=== PATIENT | male | born 1995 | race Caucasian/White ===

== ENCOUNTER 2016-12-17 21:56 | Emergency (ER) | payer SELFPAY ==
--- NOTE | 2016-12-17 22:57 | ED ORDER SUMMARY ---
..... Patient: LORI HOWARD I OrderSheet [facility] VisitID: [id number] [place] [address] 21y, M Registration Date/Time: 12/17/2016 ORDER SHEET Weight: 99.7 kg Allergies: No Known Drug Allergy GENERAL ORDERS: MEDICATION ORDERS: Motrin PO 800 mg (NOW) (22:50 12/17/2016 EKoroleva P.A.-C) (Ack 22:55 Mumtaz R.N.) (23:02 CHernandez R.N.) Tylenol PO 650 mg (NOW) (22:50 12/17/2016 EKoroleva P.A.-C) (Ack 22:55 Mirinandez R.N.) (23:03 Mirinandez R.N.) Benadryl PO 50 mg (NOW) (22:50 12/17/2016 EKoroleva P.A.-C) (Ack 22:55 Mumtaz R.N.) (23:03 CHernandez R.N.) Amoxicillin / Clavulanate PO 875 mg (NOW) (22:50 12/17/2016 EKoroleva P.A.-C) (Ack 22:55 Mumtaz R.N.) (23:03 Mirinandez R.N.) IV FLUIDS: ORDER SHEET NOTES: [Electronically signed by Delvis Rodriguez R.N. (23:12/17/2016)] [Electronically signed by Sophie StephensALeslie-C (23:13 12/17/2016)] [Electronically locked/signed by Delvis Rodriguez R.N. (23:12/17/2016)]
--- NOTE | 2016-12-17 22:57 | ED NURSING NOTES ---
Clinical Report - Nurses [facility] [address] [place] [address] 12/17/2016 21:58 Patient: LORI HOWARD I TRIAGE Triage time 22:27. Acuity: LEVEL 5. Chief Complaint: COUGH, SORE THROAT and BODY ACHES. --22:34 Delvis Rodriguez R.N. 22:27 12/17/16. BP: 141/73. HR: 81. RR: 16. O2 saturation: 100%. Temp: 98.6 F. Pain level now: uncertain. --22:34 Delvis Rodriguez R.N. Weight: 99.7 kg. Height/Length: 72 inches. BMI: 29.8. --22:32 Delvis Rodriguez R.N. Medications None. --22:31 Delvis Rodriguez R.N. Allergies No Known Drug Allergy. --22:31 Delvis Rodriguez R.N. History Arrived by private vehicle. Historian: patient. Accompanied by mother. ( Flu like symptoms with headache, sore throat, runny nose, body aches ongoing for over 2 weeks.). Onset. (2 weeks ago). He has had mild chest congestion, sinus pain, mild abdominal pain and vomiting and loose stools. He has had a mild frontal headache. 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 PAST MEDICAL HX: Immunizations: up-to-date. SURGERY HX: No history of previous surgery. SOCIAL HX: Light tobacco smoker (cigarette)- less than 1/2 a pack per day. No infectious disease exposure. --22:34 Delvis Rodriguez R.N. Interventions ID band on patient. To room. --22:34 Delvis Rodriguez R.N. PHYSICAL ASSESSMENT Ambulatory to room. GENERAL / NEURO / PSYCH: Alert. Oriented X 4. Appears in no acute distress. HEENT: Pupils equal, round and reactive to light. Mucous membranes are pink. RESPIRATORY: Respirations not labored. Cough productive of thin, yellow sputum. Chest nontender. Breath sounds within normal limits. CVS: Capillary refill less than 2 seconds. GI / : The patient has had nausea. Abdomen soft and nontender and normal bowel sounds. SKIN: Skin intact. Skin is warm. Normal skin turgor. --22:35 Delvis Rodriguez R.N. NURSING PROGRESS NOTES Head of bed elevated. Patient identifiers checked. Call light placed in reach. Side rails up x 1. Bed placed in lowest position. Brakes of bed on. Patient ready for evaluation- ED physician and TECHNICAL TRAINER notified. --22:36 Delvis Rodriguez R.N. 23:02 12/17/2016 Motrin PO Tablets 800 mg given. Allergies verified and confirmed 5 rights. --23:02 Delvis Rodriguez R.N. 23:03 12/17/2016 Tylenol (Acetaminophen) PO Tablets 650 mg given. Allergies verified and confirmed 5 rights. --23:03 Delvis Rodriguez R.N. 23:03 12/17/2016 Benadryl (DiphenhydrAMINE HCl) PO Capsules 50 mg given. Allergies verified, confirmed 5 rights and sedative warning given to the patient and patient's family. --23:03 Delvis Rodriguez R.N. 23:03 12/17/2016 AMOXICILLIN / CLAVULANATE PO Tablets 875 mg given. Allergies verified and confirmed 5 rights. --23:03 Delvis Rodriguez R.N. DISPOSITION / DISCHARGE Condition at departure: stable. No learning barriers present. Discharge instructions provided and reviewed with the patient and parent. Reviewed medication(s) side effects, precautions, dosing and course information. Prescription(s) given to the patient. Reviewed referral to a primary care physician. Patient and parent verbalized understanding. Written instructions provided in Yoruba. The patient was discharged home and accompanied by parent. He left the Emergency Department ambulatory and via private vehicle. Parent driving. --23:07 Delvis Rodriguez R.N. 23:04 12/17/16. BP: 121/78. HR: 87. RR: 18. O2 saturation: 100%. Temp: 98 F. --23:07 Delvis Rodriguez R.N. Departure time: 23:08. --23:08 Delvis Rodriguez R.N. Locked/Released at 12/17/2016 23:09 by Delvis Rodriguez R.N.
--- NOTE | 2016-12-17 22:57 | ED CLINICAL REPORT ---
Clinical Report - Physicians/Mid Levels [facility] [address] [place] [address] 12/17/2016 21:58 Patient: LORI HOWARD I Time Seen: 2244Dec 17 2016. Arrived- By private vehicle. HISTORY OF PRESENT ILLNESS Chief Complaint: SORE THROAT and SINUS PAIN. 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 The illness is described as mild. No chills. He has had a sore throat and nasal congestion. (Patient reports cough and rhinorrhea congestion facial pain over the last 2 weeks. Reports no apparent abdominal pain, however has had abdominal cramping off and on. Reports diarrhea previously, none over the last 3 days. Denies any sick arrival. Patient works at a restaurant.). Additional history - No known contact with a sick individual. REVIEW OF SYSTEMS No headache, diarrhea, abdominal pain or pedal edema. All systems otherwise negative, except as recorded above. PAST HISTORY Problems: Sprain. Immunizations. Additional Surgeries: no known surgeries. Medications: None. Allergies: No Known Drug Allergy. SOCIAL HISTORY Current every day light tobacco smoker. No drug use. ADDITIONAL NOTES The nursing notes have been reviewed. PHYSICAL EXAM Vital Signs: 12/17/2016 22:27 BP: 141/73. HR: 81. RR: 16. O2 saturation: 100%. Temp: 98.6 F. Appearance: Alert. Eyes: Pupils equal, round and reactive to light. Eyes normal inspection. ENT: Uvula midline. No tonsillar exudate or peritonsillar mass. (b/l maxillary sinus tendernss.). Neck: Normal inspection. No lymphadenopathy. CVS: Normal heart rate and rhythm. Heart sounds normal. Respiratory: No respiratory distress. Breath sounds normal. No splinting. Abdomen: Soft. No organomegaly. Skin: Skin warm. Normal skin color. Neuro: Oriented X 3. PROGRESS AND PROCEDURES Course of Care: He in the ER patient with a loading negative exam beyond sinus tenderness. Uvula midline. Patient in no distress. Patient with no facial swelling. Patient with soft abdomen, non-septic appearing. Discussed option as this may be viral nature. 12/17/2016 23:04 BP: 121/78. HR: 87. RR: 18. O2 saturation: 100%. Temp: 98 F. Patient is stable. Physical exam findings are improved. Symptoms better. Patient/family counseled. Disposition: Discharged. CLINICAL IMPRESSION Acute sinusitis INSTRUCTIONS (Address: [place] [address] ). Prescription Medications: Augmentin 875 mg: take 1 tablet orally every 12 hours for 7 days. Dispense fourteen (14). No refills. Substitution is permissible. Ibuprofen 800 mg tablets: take 1 tablet orally every 8 hours for 5 days, as needed for pain. Dispense twenty (20). No refill. OTC Medications: Tylenol ER 650 mg (available over the counter): take 1 orally every 8 hours for 5 days, as needed for fever. Dispense twenty (20). No refill. Substitution is permissible. Sudafed 60 mg tabs (available over the counter): take 1 tablet orally every 8 hours for 3 days, as needed for congestion. Dispense twenty (20). No refill. Substitution is permissible. (Electronically signed by Sophie Stephens P.A.-C 12/17/2016 23:13)
--- NOTE | 2016-12-17 22:57 | ED CLINICAL REPORT ---
Clinical Report - Physicians/Mid Levels [facility] [address] [place] [address] 12/17/2016 21:58 Patient: LORI HOWARD I Time Seen: 2244Dec 17 2016. Arrived- By private vehicle. HISTORY OF PRESENT ILLNESS Chief Complaint: SORE THROAT and SINUS PAIN. 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 The illness is described as mild. No chills. He has had a sore throat and nasal congestion. (Patient reports cough and rhinorrhea congestion facial pain over the last 2 weeks. Reports no apparent abdominal pain, however has had abdominal cramping off and on. Reports diarrhea previously, none over the last 3 days. Denies any sick arrival. Patient works at a restaurant.). Additional history - No known contact with a sick individual. REVIEW OF SYSTEMS No headache, diarrhea, abdominal pain or pedal edema. All systems otherwise negative, except as recorded above. PAST HISTORY Problems: Sprain. Immunizations. Additional Surgeries: no known surgeries. Medications: None. Allergies: No Known Drug Allergy. SOCIAL HISTORY Current every day light tobacco smoker. No drug use. ADDITIONAL NOTES The nursing notes have been reviewed. PHYSICAL EXAM Vital Signs: 12/17/2016 22:27 BP: 141/73. HR: 81. RR: 16. O2 saturation: 100%. Temp: 98.6 F. Appearance: Alert. Eyes: Pupils equal, round and reactive to light. Eyes normal inspection. ENT: Uvula midline. No tonsillar exudate or peritonsillar mass. (b/l maxillary sinus tendernss.). Neck: Normal inspection. No lymphadenopathy. CVS: Normal heart rate and rhythm. Heart sounds normal. Respiratory: No respiratory distress. Breath sounds normal. No splinting. Abdomen: Soft. No organomegaly. Skin: Skin warm. Normal skin color. Neuro: Oriented X 3. PROGRESS AND PROCEDURES Course of Care: He in the ER patient with a loading negative exam beyond sinus tenderness. Uvula midline. Patient in no distress. Patient with no facial swelling. Patient with soft abdomen, non-septic appearing. Discussed option as this may be viral nature. 12/17/2016 23:04 BP: 121/78. HR: 87. RR: 18. O2 saturation: 100%. Temp: 98 F. Patient is stable. Physical exam findings are improved. Symptoms better. Patient/family counseled. Disposition: Discharged. CLINICAL IMPRESSION Acute sinusitis INSTRUCTIONS (Address: [place] [address] ). Prescription Medications: Augmentin 875 mg: take 1 tablet orally every 12 hours for 7 days. Dispense fourteen (14). No refills. Substitution is permissible. Ibuprofen 800 mg tablets: take 1 tablet orally every 8 hours for 5 days, as needed for pain. Dispense twenty (20). No refill. OTC Medications: Tylenol ER 650 mg (available over the counter): take 1 orally every 8 hours for 5 days, as needed for fever. Dispense twenty (20). No refill. Substitution is permissible. Sudafed 60 mg tabs (available over the counter): take 1 tablet orally every 8 hours for 3 days, as needed for congestion. Dispense twenty (20). No refill. Substitution is permissible. (Electronically signed by Sophie Stephens P.A.-C 12/17/2016 23:13)
--- NOTE | 2016-12-17 22:57 | ED NURSING NOTES ---
Clinical Report - Nurses [facility] [address] [place] [address] 12/17/2016 21:58 Patient: LORI HOWARD I TRIAGE Triage time 22:27. Acuity: LEVEL 5. Chief Complaint: COUGH, SORE THROAT and BODY ACHES. --22:34 Delvis Rodriguez R.N. 22:27 12/17/16. BP: 141/73. HR: 81. RR: 16. O2 saturation: 100%. Temp: 98.6 F. Pain level now: uncertain. --22:34 Delvis Rodriguez R.N. Weight: 99.7 kg. Height/Length: 72 inches. BMI: 29.8. --22:32 Delvis Rodriguez R.N. Medications None. --22:31 Delvis Rodriguez R.N. Allergies No Known Drug Allergy. --22:31 Delvis Rodriguez R.N. History Arrived by private vehicle. Historian: patient. Accompanied by mother. ( Flu like symptoms with headache, sore throat, runny nose, body aches ongoing for over 2 weeks.). Onset. (2 weeks ago). He has had mild chest congestion, sinus pain, mild abdominal pain and vomiting and loose stools. He has had a mild frontal headache. 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 PAST MEDICAL HX: Immunizations: up-to-date. SURGERY HX: No history of previous surgery. SOCIAL HX: Light tobacco smoker (cigarette)- less than 1/2 a pack per day. No infectious disease exposure. --22:34 Delvis Rodriguez R.N. Interventions ID band on patient. To room. --22:34 Delvis Rodriguez R.N. PHYSICAL ASSESSMENT Ambulatory to room. GENERAL / NEURO / PSYCH: Alert. Oriented X 4. Appears in no acute distress. HEENT: Pupils equal, round and reactive to light. Mucous membranes are pink. RESPIRATORY: Respirations not labored. Cough productive of thin, yellow sputum. Chest nontender. Breath sounds within normal limits. CVS: Capillary refill less than 2 seconds. GI / : The patient has had nausea. Abdomen soft and nontender and normal bowel sounds. SKIN: Skin intact. Skin is warm. Normal skin turgor. --22:35 Delvis Rodriguez R.N. NURSING PROGRESS NOTES Head of bed elevated. Patient identifiers checked. Call light placed in reach. Side rails up x 1. Bed placed in lowest position. Brakes of bed on. Patient ready for evaluation- ED physician and SWAT TEAM MEMBER notified. --22:36 Delvis Rodriguez R.N. 23:02 12/17/2016 Motrin PO Tablets 800 mg given. Allergies verified and confirmed 5 rights. --23:02 Delvis Rodriguez R.N. 23:03 12/17/2016 Tylenol (Acetaminophen) PO Tablets 650 mg given. Allergies verified and confirmed 5 rights. --23:03 Delvis Rodriguez R.N. 23:03 12/17/2016 Benadryl (DiphenhydrAMINE HCl) PO Capsules 50 mg given. Allergies verified, confirmed 5 rights and sedative warning given to the patient and patient's family. --23:03 Delvis Rodriguez R.N. 23:03 12/17/2016 AMOXICILLIN / CLAVULANATE PO Tablets 875 mg given. Allergies verified and confirmed 5 rights. --23:03 Delvis Rodriguez R.N. DISPOSITION / DISCHARGE Condition at departure: stable. No learning barriers present. Discharge instructions provided and reviewed with the patient and parent. Reviewed medication(s) side effects, precautions, dosing and course information. Prescription(s) given to the patient. Reviewed referral to a primary care physician. Patient and parent verbalized understanding. Written instructions provided in Turkish. The patient was discharged home and accompanied by parent. He left the Emergency Department ambulatory and via private vehicle. Parent driving. --23:07 Delvis Rodriguez R.N. 23:04 12/17/16. BP: 121/78. HR: 87. RR: 18. O2 saturation: 100%. Temp: 98 F. --23:07 Delvis Rodriguez R.N. Departure time: 23:08. --23:08 Delvis Rodriguez R.N. Locked/Released at 12/17/2016 23:09 by Delvis Rodriguez R.N.
--- NOTE | 2016-12-17 22:57 | ED ORDER SUMMARY ---
..... Patient: LORI HOWARD I OrderSheet [facility] VisitID: [id number] [place] [address] 21y, M Registration Date/Time: 12/17/2016 ORDER SHEET Weight: 99.7 kg Allergies: No Known Drug Allergy GENERAL ORDERS: MEDICATION ORDERS: Motrin PO 800 mg (NOW) (22:50 12/17/2016 EKoroleva P.A.-C) (Ack 22:55 Mumtaz R.N.) (23:02 CHernandez R.N.) Tylenol PO 650 mg (NOW) (22:50 12/17/2016 EKoroleva P.A.-C) (Ack 22:55 Mirinandez R.N.) (23:03 Mirinandez R.N.) Benadryl PO 50 mg (NOW) (22:50 12/17/2016 EKoroleva P.A.-C) (Ack 22:55 Mumtaz R.N.) (23:03 CHernandez R.N.) Amoxicillin / Clavulanate PO 875 mg (NOW) (22:50 12/17/2016 EKoroleva P.A.-C) (Ack 22:55 Mumtaz R.N.) (23:03 Mirinandez R.N.) IV FLUIDS: ORDER SHEET NOTES: [Electronically signed by Delvis Rodriguez R.N. (23:12/17/2016)] [Electronically signed by Sophie StephensALeslie-C (23:13 12/17/2016)] [Electronically locked/signed by Delvis Rodriguez R.N. (23:12/17/2016)]
--- NOTE | 2016-12-17 23:13 | ED DISCHARGE INSTRUCTIONS ---
Patient: LORI HOWARD I General Instructions [facility] VisitID: [id number] [place] [address] 21y, M Registration Date/Time: 12/17/2016 Acute sinusitis INSTRUCTIONS (Address: [place] [address] ). Prescription Medications: Augmentin 875 mg: take 1 tablet orally every 12 hours for 7 days. Dispense fourteen (14). No refills. Substitution is permissible. Ibuprofen 800 mg tablets: take 1 tablet orally every 8 hours for 5 days, as needed for pain. Dispense twenty (20). No refill. OTC Medications: Tylenol ER 650 mg (available over the counter): take 1 orally every 8 hours for 5 days, as needed for fever. Dispense twenty (20). No refill. Substitution is permissible. Sudafed 60 mg tabs (available over the counter): take 1 tablet orally every 8 hours for 3 days, as needed for congestion. Dispense twenty (20). No refill. Substitution is permissible. ADDITIONAL INFORMATION Sinusitis [Abx Tx] The sinuses are air-filled spaces within the bones of the face. They connect to the inside of the nose. Sinusitis is an inflammation of the tissue lining the sinus cavity. Sinus inflammation can occur during a cold or hay-fever (allergies to pollens and other particles in the air) and cause symptoms of sinus congestion and fullness. A sinus infection causes fever, headache and facial pain. There is usually green or yellow drainage from the nose or into the back of the throat (post-nasal drip). Antibiotics are prescribed to treat this condition. Home Care: Drink plenty of water, hot tea, and other liquids to stay well hydrated. This thins the mucus and promotes sinus drainage. Apply heat to the painful areas of the face. Use a towel soaked in hot water. Or, standard machine stitcher the shower and direct the hot spray onto your face. This is a good way to inhale warm water vapor and get heat on your face at the same time. (Cover your mouth and nose with your hands so you can still breathe as you do this.) Use a vaporizer with products such as Vicks VapoRub (contains menthol) at night. Suck on peppermint, menthol or eucalyptus hard candies during the day. An expectorant containing guaifenesin (such as Robitussin), helps to thin the mucus and promote drainage from the sinuses. Pysb-uhd-dkkreat decongestants may be used unless a similar medicine was prescribed. Nasal sprays work the fastest. Use one that contains phenylephrine (Louie-synephrine, Sinex and others) or oxymetazoline (Afrin). First blow the nose gently to remove mucus, then apply the drops. Do not use these medicines more often than directed on the label or for more than three days or symptoms may worsen. You may also use tablets containing pseudoephedrine (Sudafed). Many sinus remedies combine ingredients, which may increase side effects. Read the labels or ask the pharmacist for help. NOTE: Persons with high blood pressure should not use decongestants. They can raise blood pressure. Antihistamines are useful if allergies are a cause of your sinusitis. The mildest one is chlorpheniramine (available without a prescription). The dose for adults is 8-12mg three times a day. [NOTE: Do not use chlorpheniramine if you have glaucoma or if you are a man with trouble urinating due to an enlarged prostate.] Claritin (loratidine) is an antihistamine that causes less drowsiness and is a good alternative for daytime use. Do not use nasal rinses or irrigation during an acute sinus infection, unless advised by your doctor. Rinsing may spread the infection to other sinuses. You may use acetaminophen (Tylenol) or ibuprofen (Motrin, Advil) to control pain, unless another pain medicine was prescribed. [ NOTE: If you have chronic liver or kidney disease or ever had a stomach ulcer, talk with your doctor before using these medicines.] (Aspirin should never be used in anyone under 18 years of age who is ill with a fever. It may cause severe liver damage.) Finish the full course, even if you are feeling better after a few days. Follow Up with your doctor or this facility in one week or as instructed by our staff if not improving. Get Prompt Medical Attention if any of the following occur: Facial pain or headache becomes more severe Stiff neck Unusual drowsiness or confusion, or not acting like your normal self Swelling of the forehead or eyelids Vision problems including blurred or double vision Fever of 100.4F (38C) or higher, or as directed by your healthcare provider Seizure Pseudoephedrine Hydrochloride Oral tablet [Abuse Deterrent] What is this medicine? PSEUDOEPHEDRINE (myla gilmore e FED rin) is a decongestant. It is used to treat congestion of the nose or sinuses. How should I use this medicine? Take this medicine by mouth with a glass of water. Follow the directions on the package or prescription label. Take your medicine at regular intervals. Do not take your medicine more often than directed. Talk to your community recreation programmer regarding the use of this medicine in children. While this drug may be prescribed for children as young as 6 years of age for selected conditions, precautions do apply. Patients over 65 years old may have a stronger reaction and need a smaller dose. What side effects may I notice from receiving this medicine? Side effects that you should report to your doctor or health direct care worker as soon as possible: allergic reactions like skin rash, itching or hives, swelling of the face, lips, or tongue bloody diarrhea with stomach pain breathing problems chest pain confused, agitated, nervous fast, irregular heartbeat feeling faint or lightheaded, falls hallucinations high blood pressure pain, tingling, numbness in the hands or feet trouble passing urine or change in the amount of urine trouble sleeping Side effects that usually do not require medical attention (report to your doctor or health direct care worker if they continue or are bothersome): headache loss of appetite nausea, stomach upset What may interact with this medicine? Do not take this medicine with any of the following medications: bromocriptine ergot alkaloids like dihydroergotamine, ergonovine, ergotamine, methylergonovine MAOIs like Carbex, Eldepryl, Marplan, Nardil, and Parnate stimulant medicines for attention disorders, weight loss, or to stay awake This medicine may also interact with the following medications: alcohol atropine bretylium caffeine digoxin linezolid mecamylamine medicines for blood pressure medicines for depression, anxiety, or psychotic disturbances like fluoxetine, sertraline medicines for enlarged prostate medicines for sleep other medicines for cold, cough, or allergy procarbazine reserpine some heart medicines like metoprolol Roby's Wort What if I miss a dose? If you miss a dose, take it as soon as you can. If it is almost time for your next dose, take only that dose. Do not take double or extra doses. Where should I keep my medicine? Keep out of the reach of children. Store at room temperature between 15 and 25 degrees C (59 and 77 degrees F). Protect from heat and moisture. Throw away any unused medicine after the expiration date. What should I tell my health care provider before I take this medicine? They need to know if you have any of the following conditions: diabetes glaucoma heart disease high blood pressure kidney disease prostate trouble taken an MAOI like Carbex, Eldepryl, Marplan, Nardil, or Parnate in last 14 days thyroid disease trouble passing urine an unusual or allergic reaction to pseudoephedrine, other medicines, foods, dyes, or preservatives or trying to get breast-feeding What should I watch for while using this medicine? Tell your doctor or healthcare professional if your symptoms do not start to get better or if they get worse. See your doctor if you are not better in 7 days or if you have a fever. You have been given the following additional information: Sinusitis, Abx Tx Pseudoephedrine Hydrochloride Oral tablet [Abuse Deterrent] (Electronically signed by Sophie Stephens P.A.-C 12/17/2016 23:13)
--- NOTE | 2016-12-17 23:13 | ED MAR SUMMARY ---
..... Medication Administration Record [facility] [address] [place] [address] Patient: LORI HOWARD I Visit ID: [id number] 21y, M Weight: 99.7 kg Height/Length: 72 in BMI: 29.8 ALLERGIES: No Known Drug Allergy Given 23:12/17/2016 Delvis Rodriguez R.N. Medication Administered: MOTRIN [PO], Dose: 800 mg Tablets PO. Medication Ordered: Motrin PO 800 mg (NOW). Given 23:12/17/2016 Delvis Rodriguez R.N. Medication Administered: TYLENOL [PO] (ACETAMINOPHEN), Dose: 650 mg Tablets PO. Medication Ordered: Tylenol PO 650 mg (NOW). Given 23:12/17/2016 Delvis Rodriguez R.N. Medication Administered: BENADRYL [PO] (DIPHENHYDRAMINE HCL), Dose: 50 mg Capsules PO. Medication Ordered: Benadryl PO 50 mg (NOW). Given 23:12/17/2016 Delvis Rodriguez R.N. Medication Administered: AMOXICILLIN / CLAVULANATE [PO], Dose: 875 mg Tablets PO. Medication Ordered: Amoxicillin / Clavulanate PO 875 mg (NOW).
--- NOTE | 2016-12-17 23:13 | ED DISCHARGE INSTRUCTIONS ---
Patient: LORI HOWARD I General Instructions [facility] VisitID: [id number] [place] [address] 21y, M Registration Date/Time: 12/17/2016 Acute sinusitis INSTRUCTIONS (Address: [place] [address] ). Prescription Medications: Augmentin 875 mg: take 1 tablet orally every 12 hours for 7 days. Dispense fourteen (14). No refills. Substitution is permissible. Ibuprofen 800 mg tablets: take 1 tablet orally every 8 hours for 5 days, as needed for pain. Dispense twenty (20). No refill. OTC Medications: Tylenol ER 650 mg (available over the counter): take 1 orally every 8 hours for 5 days, as needed for fever. Dispense twenty (20). No refill. Substitution is permissible. Sudafed 60 mg tabs (available over the counter): take 1 tablet orally every 8 hours for 3 days, as needed for congestion. Dispense twenty (20). No refill. Substitution is permissible. ADDITIONAL INFORMATION Sinusitis [Abx Tx] The sinuses are air-filled spaces within the bones of the face. They connect to the inside of the nose. Sinusitis is an inflammation of the tissue lining the sinus cavity. Sinus inflammation can occur during a cold or hay-fever (allergies to pollens and other particles in the air) and cause symptoms of sinus congestion and fullness. A sinus infection causes fever, headache and facial pain. There is usually green or yellow drainage from the nose or into the back of the throat (post-nasal drip). Antibiotics are prescribed to treat this condition. Home Care: Drink plenty of water, hot tea, and other liquids to stay well hydrated. This thins the mucus and promotes sinus drainage. Apply heat to the painful areas of the face. Use a towel soaked in hot water. Or, machine shop instructor the shower and direct the hot spray onto your face. This is a good way to inhale warm water vapor and get heat on your face at the same time. (Cover your mouth and nose with your hands so you can still breathe as you do this.) Use a vaporizer with products such as Vicks VapoRub (contains menthol) at night. Suck on peppermint, menthol or eucalyptus hard candies during the day. An expectorant containing guaifenesin (such as Robitussin), helps to thin the mucus and promote drainage from the sinuses. [id number] decongestants may be used unless a similar medicine was prescribed. Nasal sprays work the fastest. Use one that contains phenylephrine (Louie-synephrine, Sinex and others) or oxymetazoline (Afrin). First blow the nose gently to remove mucus, then apply the drops. Do not use these medicines more often than directed on the label or for more than three days or symptoms may worsen. You may also use tablets containing pseudoephedrine (Sudafed). Many sinus remedies combine ingredients, which may increase side effects. Read the labels or ask the pharmacist for help. NOTE: Persons with high blood pressure should not use decongestants. They can raise blood pressure. Antihistamines are useful if allergies are a cause of your sinusitis. The mildest one is chlorpheniramine (available without a prescription). The dose for adults is 8-12mg three times a day. [NOTE: Do not use chlorpheniramine if you have glaucoma or if you are a man with trouble urinating due to an enlarged prostate.] Claritin (loratidine) is an antihistamine that causes less drowsiness and is a good alternative for daytime use. Do not use nasal rinses or irrigation during an acute sinus infection, unless advised by your doctor. Rinsing may spread the infection to other sinuses. You may use acetaminophen (Tylenol) or ibuprofen (Motrin, Advil) to control pain, unless another pain medicine was prescribed. [ NOTE: If you have chronic liver or kidney disease or ever had a stomach ulcer, talk with your doctor before using these medicines.] (Aspirin should never be used in anyone under 18 years of age who is ill with a fever. It may cause severe liver damage.) Finish the full course, even if you are feeling better after a few days. Follow Up with your doctor or this facility in one week or as instructed by our staff if not improving. Get Prompt Medical Attention if any of the following occur: Facial pain or headache becomes more severe Stiff neck Unusual drowsiness or confusion, or not acting like your normal self Swelling of the forehead or eyelids Vision problems including blurred or double vision Fever of 100.4F (38C) or higher, or as directed by your healthcare provider Seizure Pseudoephedrine Hydrochloride Oral tablet [Abuse Deterrent] What is this medicine? PSEUDOEPHEDRINE (myla gilmore e FED rin) is a decongestant. It is used to treat congestion of the nose or sinuses. How should I use this medicine? Take this medicine by mouth with a glass of water. Follow the directions on the package or prescription label. Take your medicine at regular intervals. Do not take your medicine more often than directed. Talk to your sr. media manager regarding the use of this medicine in children. While this drug may be prescribed for children as young as 6 years of age for selected conditions, precautions do apply. Patients over 65 years old may have a stronger reaction and need a smaller dose. What side effects may I notice from receiving this medicine? Side effects that you should report to your doctor or health health care liaison as soon as possible: allergic reactions like skin rash, itching or hives, swelling of the face, lips, or tongue bloody diarrhea with stomach pain breathing problems chest pain confused, agitated, nervous fast, irregular heartbeat feeling faint or lightheaded, falls hallucinations high blood pressure pain, tingling, numbness in the hands or feet trouble passing urine or change in the amount of urine trouble sleeping Side effects that usually do not require medical attention (report to your doctor or health health care liaison if they continue or are bothersome): headache loss of appetite nausea, stomach upset What may interact with this medicine? Do not take this medicine with any of the following medications: bromocriptine ergot alkaloids like dihydroergotamine, ergonovine, ergotamine, methylergonovine MAOIs like Carbex, Eldepryl, Marplan, Nardil, and Parnate stimulant medicines for attention disorders, weight loss, or to stay awake This medicine may also interact with the following medications: alcohol atropine bretylium caffeine digoxin linezolid mecamylamine medicines for blood pressure medicines for depression, anxiety, or psychotic disturbances like fluoxetine, sertraline medicines for enlarged prostate medicines for sleep other medicines for cold, cough, or allergy procarbazine reserpine some heart medicines like metoprolol Roby's Wort What if I miss a dose? If you miss a dose, take it as soon as you can. If it is almost time for your next dose, take only that dose. Do not take double or extra doses. Where should I keep my medicine? Keep out of the reach of children. Store at room temperature between 15 and 25 degrees C (59 and 77 degrees F). Protect from heat and moisture. Throw away any unused medicine after the expiration date. What should I tell my health care provider before I take this medicine? They need to know if you have any of the following conditions: diabetes glaucoma heart disease high blood pressure kidney disease prostate trouble taken an MAOI like Carbex, Eldepryl, Marplan, Nardil, or Parnate in last 14 days thyroid disease trouble passing urine an unusual or allergic reaction to pseudoephedrine, other medicines, foods, dyes, or preservatives or trying to get breast-feeding What should I watch for while using this medicine? Tell your doctor or healthcare professional if your symptoms do not start to get better or if they get worse. See your doctor if you are not better in 7 days or if you have a fever. You have been given the following additional information: Sinusitis, Abx Tx Pseudoephedrine Hydrochloride Oral tablet [Abuse Deterrent] (Electronically signed by Sophie Stephens P.A.-C 12/17/2016 23:13)
--- NOTE | 2016-12-17 23:13 | ED MED RECONCILIATION SUMMARY ---
Patient: LORI HOWARD I Medication Reconciliation Report [facility] VisitID: [id number] [place] [address] 21y, M Registration Date/Time: 12/17/2016 Weight: 99.7 kg Height/Length: 72 in. BMI: 29.8 ALLERGIES: No Known Drug Allergy The patient's Home Medications are listed below: NONE. The source(s) of the original Home Medication information: Not obtained. The following Medications were given to the patient in the Emergency Department: Motrin [PO] PO 800 mg, administered: 12/17/2016 11:02:00 PM Tylenol [PO] PO 650 mg, administered: 12/17/2016 11:03:00 PM Benadryl [PO] PO 50 mg, administered: 12/17/2016 11:03:00 PM AMOXICILLIN / CLAVULANATE [PO] PO 875 mg, administered: 12/17/2016 11:03:00 PM The following Medications were prescribed to the patient: Augmentin 875 mg: take 1 tablet orally every 12 hours for 7 days. Dispense fourteen (14). No refills. Substitution is permissible. -- Kat, Sophie, P.A.-C Ibuprofen 800 mg tablets: take 1 tablet orally every 8 hours for 5 days, as needed for pain. Dispense twenty (20). No refill. -- Reyesolelatisha, Sophie, P.A.-C Tylenol ER 650 mg (available over the counter): take 1 orally every 8 hours for 5 days, as needed for fever. Dispense twenty (20). No refill. Substitution is permissible. -- Sophie Stephens, P.A.-C Sudafed 60 mg tabs (available over the counter): take 1 tablet orally every 8 hours for 3 days, as needed for congestion. Dispense twenty (20). No refill. Substitution is permissible. -- Sophie Stephens, P.A.-C
--- NOTE | 2016-12-17 23:13 | ED MED RECONCILIATION SUMMARY ---
Patient: LORI HOWARD I Medication Reconciliation Report [facility] VisitID: [id number] [place] [address] 21y, M Registration Date/Time: 12/17/2016 Weight: 99.7 kg Height/Length: 72 in. BMI: 29.8 ALLERGIES: No Known Drug Allergy The patient's Home Medications are listed below: NONE. The source(s) of the original Home Medication information: Not obtained. The following Medications were given to the patient in the Emergency Department: Motrin [PO] PO 800 mg, administered: 12/17/2016 11:02:00 PM Tylenol [PO] PO 650 mg, administered: 12/17/2016 11:03:00 PM Benadryl [PO] PO 50 mg, administered: 12/17/2016 11:03:00 PM AMOXICILLIN / CLAVULANATE [PO] PO 875 mg, administered: 12/17/2016 11:03:00 PM The following Medications were prescribed to the patient: Augmentin 875 mg: take 1 tablet orally every 12 hours for 7 days. Dispense fourteen (14). No refills. Substitution is permissible. -- Kat, Sophie, P.A.-C Ibuprofen 800 mg tablets: take 1 tablet orally every 8 hours for 5 days, as needed for pain. Dispense twenty (20). No refill. -- Reyesolelatisha, Sophie, P.A.-C Tylenol ER 650 mg (available over the counter): take 1 orally every 8 hours for 5 days, as needed for fever. Dispense twenty (20). No refill. Substitution is permissible. -- Sophie Stephens, P.A.-C Sudafed 60 mg tabs (available over the counter): take 1 tablet orally every 8 hours for 3 days, as needed for congestion. Dispense twenty (20). No refill. Substitution is permissible. -- Sophie Stephens, P.A.-C
--- NOTE | 2016-12-17 23:13 | ED MAR SUMMARY ---
..... Medication Administration Record [facility] [address] [place] [address] Patient: LORI HOWARD I Visit ID: [id number] 21y, M Weight: 99.7 kg Height/Length: 72 in BMI: 29.8 ALLERGIES: No Known Drug Allergy Given 23:12/17/2016 Delvis Rodriguez R.N. Medication Administered: MOTRIN [PO], Dose: 800 mg Tablets PO. Medication Ordered: Motrin PO 800 mg (NOW). Given 23:12/17/2016 Delvis Rodriguez R.N. Medication Administered: TYLENOL [PO] (ACETAMINOPHEN), Dose: 650 mg Tablets PO. Medication Ordered: Tylenol PO 650 mg (NOW). Given 23:12/17/2016 Delvis Rodriguez R.N. Medication Administered: BENADRYL [PO] (DIPHENHYDRAMINE HCL), Dose: 50 mg Capsules PO. Medication Ordered: Benadryl PO 50 mg (NOW). Given 23:12/17/2016 Delvis Rodriguez R.N. Medication Administered: AMOXICILLIN / CLAVULANATE [PO], Dose: 875 mg Tablets PO. Medication Ordered: Amoxicillin / Clavulanate PO 875 mg (NOW).
== END 2016-12-17 23:15 | disposition home or self-care (01) ==
LOC: ED SRH 21:56
DX: J01.90 Acute sinusitis, unspecified (principal); Z72.0 Tobacco use